=== PATIENT | female | born 1995 | race Caucasian/White ===

== ENCOUNTER → 2022-04-19 | Outpatient (REF) | LOC: M LABSMTC 09:25 | PROVIDERS: ATTEND Family Medicine | DX: Z20.822 Contact with and (suspected) exposure to COVID-19 (principal) ==

== ENCOUNTER → 2022-06-01 | Outpatient (REF) | LOC: M EMP 12:48 | PROVIDERS: ATTEND Family Medicine | DX: Z20.822 Contact with and (suspected) exposure to COVID-19 (principal) ==